=== PATIENT | female | born 1955 | race Caucasian/White ===

== ENCOUNTER → 2018-09-30 | Outpatient (CLI) | payer OTHER | LOC: MC.RAD 09-24 13:20 | DX: Z12.31 Encounter for screening mammogram for malignant neoplasm of breast (principal); M85.80 Other specified disorders of bone density and structure, unspecified site ==

== ENCOUNTER 2021-03-27 15:45 | Observation (INO) | payer MEDICARE ==
[~2021-03-27] VITALS: Ht 162.6 cm; Wt 45.5 kg
[2021-03-27 17:13] LABS: BASO # 0.1 (0.0-0.2); BASO % 0.5 % (0.0-2.0); EOS % 0.4 % (0-4.0); GRAN % 77.9 % (42.2-75.2); HEMATOCRIT 40.7 % (37.0-47.0); HEMOGLOBIN 14.6 g/dl (12.5-16.0); LYMPH # 1.2 (1.2-3.4); LYMPH % 11.5 % (20.0-51.0); MEAN CELL VOLUME 88 fl (80.0-100.0); MEAN CORPUSCULAR HEMOGLOBIN 32 pg (27.0-31.0); MEAN CORPUSCULAR HGB CONC 36 g/dl (33.0-37.0); MEAN PLATELET VOLUME 8.8 fl (7.4-10.4); MONO % 9.2 % (1.7-9.3); PLATELET COUNT 315 K/mm3 (130-400); RED BLOOD COUNT 4.62 M/mm3 (4.10-5.30); REDCELL DISTRIBUTION WIDTH-CV 11.9 % (11.5-14.5)
[2021-03-27 17:28] LABS: ALANINE AMINOTRANSFERASE 9 U/L (4-34); ALBUMIN 4.9 gm/dL (3.5-5.0); ALKALINE PHOSPHATASE 73 U/L (50-136); ANION GAP 10 mmol/L (7-16); AST,SGOT 21 U/L (15-37); BILIRUBIN,TOTAL 0.8 mg/dL (0.0-1.0); BLOOD UREA NITROGEN 22 mg/dL (7-17); CALCIUM 9.9 mg/dL (8.4-10.2); CARBON DIOXIDE 26 mmol/L (22-30); CREATININE, serum 0.86 (0.52-1.25); GLUCOSE 109 mg/dL (74-106); LIPASE 82 U/L (23-300); POTASSIUM 3.9 mmol/L (3.4-5.0); SODIUM 123 mmol/L (137-145); TOTAL PROTEIN 8.2 gm/dL (6.4-8.2)
[2021-03-27 17:32] LABS: C-REACTIVE PROTEIN < 0.5 mg/dL (0.0-0.9)
[2021-03-27 17:33] LABS: CHLORIDE 87 mmol/L (98-107)
[2021-03-27] MEDS ORDERED: PRINIVIL5 MG PO (19:41)
[2021-03-27 22:06] LABS: CALCIUM 8.8 mg/dL (8.4-10.2); CREATININE, serum 0.75 (0.52-1.25)
[2021-03-28 00:46] VITALS: BP 112/57; PULSE 58; TEMP 98.3
--- NOTE | 2021-03-28 02:09 | NUR ---
Patient arrived to medical floor room 353 via hospital bed from ER around 2300. Patient pleasant, alert and oriented. Patient states feeling much better since she came to the hospital. Patient denies any pain or discomfort. Denies SOB, N/V, or diarrhea. Patient reports she just feeling a little dizzy when she gets up from bed. NS currently running at 125ml/hr. Offered Jello and crackers per patient request. Patient currently on free water restrictions. Patient verbalized understanding. Oriented patient to the room. Call light within reach. Will continue to monitor.
[2021-03-28 03:23] VITALS: BP 129/67; PULSE 55; TEMP 97.9
[2021-03-28 03:47] LABS: CALCIUM 8.5 mg/dL (8.4-10.2); CREATININE, serum 0.73 (0.52-1.25); POTASSIUM 3.7 mmol/L (3.4-5.0)
--- NOTE | 2021-03-28 06:23 | NUR ---
Patient reports feeling much better this morning. Na level improved to 131 at 03:30 am this morning. NS currently running at 60ml/hr. No N/V noted throughout the night. Call light within reach. Will continue to monitor.
[2021-03-28 07:06] LABS: CALCIUM 8.9 mg/dL (8.4-10.2); CREATININE, serum 0.73 (0.52-1.25); POTASSIUM 3.4 mmol/L (3.4-5.0)
[2021-03-28 08:00] VITALS: BP 116/57; PULSE 71; TEMP 98.6
--- NOTE | 2021-03-28 10:56 | NUR ---
SHILA met with the patient to discuss discharge plan. The patient lives in [place] with her , Tapan (ph#[phone]). She states that her and Tapan have a new home in [place] and will be moving up here, once she discharges. She reports independence with ADLs and does not have any DME. The patient's PCP is Dr. Rubens Salazar and she receives her medications from [facility] and [facility]. She reports no difficulties obtaining her meds. The patient does not have a DPOA-HC in EMR, but she states that she believes she has one completed and that she designated her . The patient plans to return home with her upon discharge. No additional needs at this time. *Discharge plan: home with *
[2021-03-28 11:49] VITALS: BP 103/57; PULSE 68; TEMP 98.4
--- NOTE | 2021-03-28 12:57 | NUR ---
First visit from the palaeontologist. No needs right now.
--- NOTE | 2021-03-28 15:03 | NUR ---
1500 PT BEING DISCHARGED AT THIS TIME. NO S/S OF DISTRESS NOTICED. DISCHARGE INSTRUCTIONS REVIEWED W/ PT AND SHE VERBALIZES THAT SHE UNDERSTANDS. SPOUSE AT THE BEDSIDE TO TRANSPORT PT HOME. IV ACCESS AND TELE MONITOR REMOVED. PT VOISES NO CONCERNS AT THIS TIME. PT SAID SHE WOULD LIKE TO AMBULATE TO HER SPOUSE CAR INSTEAD OF BEING TAKEN IN A WHEELCHAIR.
== END 2021-03-28 15:02 | disposition home or self-care (01) ==
LOC: COL.ER 15:45 → MEDICAL 18:13
PROVIDERS: Physician Assistant; Student in an Organized Health Care Education/Training Program; ADMIT Internal Medicine
DX: E87.1 Hypo-osmolality and hyponatremia (principal); E87.8 Other disorders of electrolyte and fluid balance, not elsewhere classified; R11.2 Nausea with vomiting, unspecified; I10 Essential (primary) hypertension; F17.210 Nicotine dependence, cigarettes, uncomplicated; Z79.899 Other long term (current) drug therapy; Z90.710 Acquired absence of both cervix and uterus; Z20.822 Contact with and (suspected) exposure to COVID-19
CPT/HCPCS: 99223-AI; G0378; J1650; J2405; J7030